=== PATIENT | female | born 1960 | race American Indian/Alaskan Native ===

== ENCOUNTER 2018-02-10 08:53 | Outpatient (CLI) | payer OTHER | END 2018-02-10 09:12 | disposition home or self-care (01) | LOC: MAMO-SONO 08:53 | DX: Z12.31 Encounter for screening mammogram for malignant neoplasm of breast (principal); N61.0 Mastitis without abscess ==

== ENCOUNTER 2019-07-20 07:54 | Outpatient (CLI) | payer OTHER | END 2019-07-20 07:59 | disposition home or self-care (01) | LOC: MAMO-SONO 07:54 | DX: N60.11 Diffuse cystic mastopathy of right breast (principal); N60.12 Diffuse cystic mastopathy of left breast; D49.3 Neoplasm of unspecified behavior of breast; Z12.31 Encounter for screening mammogram for malignant neoplasm of breast; Z87.898 Personal history of other specified conditions ==